=== PATIENT | male | born 1930 | race Caucasian/White ===

== ENCOUNTER 2018-11-27 20:26 | Emergency (ER) | payer MEDICARE, BC ==
[2018-11-27] MEDS ORDERED: Sodium Chloride 0.9% 10 ML Syringe FLUSH PRN (21:12)
[2018-11-27] MEDS ORDERED: Furosemide 40 MG/4 ML VIAL IVPUSH ONE (21:12)
--- NOTE | 2018-11-27 21:20 | EDM.PDOC ---
ED HPI GENERAL MEDICAL PROBLEM - General Chief Complaint: Respiratory Problem Stated Complaint: SOB Time Seen by Provider: 11/27/18 21:05 Source of Information: Reports: Patient, Old Records, RN History Limitations: Reports: Other (Limited old records) - History of Present Illness INITIAL COMMENTS - FREE TEXT/NARRATIVE: 88 yo male with a hx of CABG x 5 vessels and since then 5 more stents presents with some progressive SOB and orthopnea that began this afternoon. He now also has some mild chest pressure. He lives most of the year in [place], but [place] of [place]. He gets most of his care at [facility] in [facility]. He was prescribed spironolactone a week ago at [place], but has not yet started it. Onset: Today Onset Date: 11/27/18 Onset Time: 15:00 Duration: Hour(s):, Getting Worse Location: Reports: Chest Quality: Reports: Pressure Severity: Mild Improves with: Reports: Other (sitting up) Worsens with: Reports: Other (lying flat) Context: Reports: Other (see HPI) Associated Symptoms: Reports: Chest Pain (mild pressure), Shortness of Breath. Denies: Fever/Chills Treatments [employer]ATING: Reports: Other (see below) (none) - Related Data Allergies Allergy/AdvReac Type Severity Reaction Status Date / Time No Known Allergies Allergy Verified 11/27/18 20:47 Home Meds: Home Meds Carvedilol [Coreg] 12.5 mg PO BID 03/02/13 [History] Omeprazole 20 mg PO DAILY 03/02/13 [History] Terazosin [Hytrin] 15 mg PO ACBED 03/02/13 [History] Cholecalciferol (Vitamin D3) [Vitamin D3] 5,000 unit PO DAILY 11/27/18 [History] Clopidogrel [Plavix] 75 mg PO DAILY 11/27/18 [History] Dutasteride [Avodart] 0.5 mg PO DAILY 11/27/18 [History] Ferrous Gluconate 324 mg PO BID 11/27/18 [History] Furosemide [Lasix] 20 mg PO DAILY 11/27/18 [History] Gabapentin [Neurontin] 100 mg PO BEDTIME 11/27/18 [History] Isosorbide Dinitrate [Isordil] 5 mg PO BID 11/27/18 [History] Nitroglycerin [Nitrostat] 0.4 mg SL Q5M PRN 11/27/18 [History] Spironolactone [Aldactone] 12.5 mg PO DAILY 11/27/18 [History] Warfarin [Coumadin] 2.5 - 5 mg PO ASDIRECTED 11/27/18 [History] atorvaSTATin Calcium [Atorvastatin Calcium] 1 tab PO DAILY 11/27/18 [History] hydrALAZINE [Apresoline] 5 mg PO BID 11/27/18 [History] Past Medical History HEENT History: Reports: Cataract, Macular Degeneration Cardiovascular History: Reports: Afib, CAD, Heart Failure, High Cholesterol, Hypertension, PR, Pacemaker Respiratory History: Reports: Pulmonary Fibrosis, Sleep Apnea Gastrointestinal History: Reports: GERD Genitourinary History: Reports: BPH, Prostate Disorder Neurological History: Reports: CVA Endocrine/Metabolic History: Reports: Diabetes, Type II Hematologic History: Reports: Anticoagulation Therapy - Past Surgical History HEENT Surgical History: Reports: Cataract Surgery Cardiovascular Surgical History: Reports: Coronary Artery Bypass, Coronary Artery Stent, Pacer GI Surgical History: Reports: Colonoscopy, EGD Social & Family History - Tobacco Use Smoking Status *Q: Never Smoker - Caffeine Use Caffeine Use: Reports: None - Recreational Drug Use Recreational Drug Use: No - Living Situation & Occupation Living situation: Reports: , with Spouse Occupation: Retired ED ROS GENERAL - Review of Systems Review Of Systems: See Below Constitutional: Reports: No Symptoms HEENT: Reports: No Symptoms Respiratory: Reports: Shortness of Breath (mainly with exertion or with lying down). Denies: Wheezing, Pleuritic Chest Pain, Cough, Sputum, Hemoptysis Cardiovascular: Reports: Chest Pain (mild pressure), Dyspnea on Exertion, Orthopnea Endocrine: Reports: No Symptoms GI/Abdominal: Reports: No Symptoms : Reports: No Symptoms Musculoskeletal: Reports: No Symptoms Skin: Reports: No Symptoms Neurological: Reports: No Symptoms Psychiatric: Reports: No Symptoms ED EXAM, GENERAL - Physical Exam Exam: See Below Exam Limited By: No Limitations General Appearance: Alert, WD/WN, No Apparent Distress, Anxious (mildly) Eye Exam: Bilateral Eye: Normal Inspection Ears: Normal External Exam, Normal Canal, Hearing Grossly Normal. No: Hearing Loss Ear Exam: Bilateral Ear: Auricle Normal, Canal Normal Nose: Normal Inspection, No Blood Throat/Mouth: Normal Inspection, Normal Lips, Normal Oropharynx, Normal Voice, No Airway Compromise Head: Atraumatic, Normocephalic Neck: Normal Inspection Respiratory/Chest: No Respiratory Distress, No Accessory Muscle Use, Decreased Breath Sounds, Rales (at extreme bases). No: Rhonchi, Wheezing Cardiovascular: Regular Rate, Rhythm, No Edema GI/Abdominal: Soft, Non-Tender, No Distention Neurological: Alert, Oriented, CN II-XII Intact, Normal Cognition, No Motor/ Sensory Deficits Psychiatric: Normal Affect, Normal Mood Skin Exam: Warm, Dry, Intact, Normal Color, No Rash Course - Vital Signs Text/Narrative:: Feeling a lot better after furosemide. Able to lie flat and speak without SOB. Last Recorded V/S: Last Vital Signs Temp 36.4 C 11/27/18 20:58 Pulse 102 H 11/27/18 22:47 Resp 21 H 11/27/18 22:47 BP 144/86 H 11/27/18 22:47 Pulse Ox 93 L 11/27/18 22:47 - Orders/Labs/Meds Orders: Active Orders 24 hr Category Date Time Status Sodium Chloride 0.9% [Saline Flush] Med 11/27/18 21:12 Active 10 ml FLUSH ASDIRECTED PRN Saline Lock Insert [OM.PC] Routine Oth 11/27/18 21:12 Ordered Medication Orders Sodium Chloride (Saline Flush) 10 ml FLUSH ASDIRECTED PRN PRN Reason: Keep Vein Open Last Admin: 11/27/18 21:34 Dose: 10 ml Labs: Laboratory Tests 11/27/18 11/27/18 11/27/18 Range/Units 21:11 21:23 21:23 WBC 7.2 (4.5-11.0) K/uL RBC 4.19 L (4.30-5.90) M/uL Hgb 11.1 L (12.0-15.0) g/dL Hct 35.7 L (40.0-54.0) % MCV 85 (80-98) fL MCH 27 (27-31) pg MCHC 31 L (32-36) % Plt Count 143 L (150-400) K/uL PT (9.5-12.0) sec INR (0.80-1.20) D-Dimer, Quantitative 266 (0.0-400.0) ng/mL Sodium 138 L (140-148) mmol/L Potassium 4.1 (3.6-5.2) mmol/L Chloride 103 (100-108) mmol/L Carbon Dioxide 25 (21-32) mmol/L Anion Gap 14.1 H (5.0-14.0) mmol/L BUN 31 H (7-18) mg/dL Creatinine 1.3 (0.8-1.3) mg/dL Est Cr Clr Drug Dosing 40.79 mL/min Estimated GFR (MDRD) 52 L (>60) Glucose 210 H (74-106) mg/dL Calcium 9.2 (8.5-10.1) mg/dL Troponin I 0.032 (0.000-0.056) ng/mL C-Reactive Protein (0.0-0.3) mg/dL NT-Pro-B Natriuret Pep (5-450) pg/mL 11/27/18 11/27/18 11/27/18 Range/Units 21:23 21:23 22:06 WBC (4.5-11.0) K/uL RBC (4.30-5.90) M/uL Hgb (12.0-15.0) g/dL Hct (40.0-54.0) % MCV (80-98) fL MCH (27-31) pg MCHC (32-36) % Plt Count (150-400) K/uL PT 32.1 H (9.5-12.0) sec INR 3.11 H (0.80-1.20) D-Dimer, Quantitative (0.0-400.0) ng/mL Sodium (140-148) mmol/L Potassium (3.6-5.2) mmol/L Chloride (100-108) mmol/L Carbon Dioxide (21-32) mmol/L Anion Gap (5.0-14.0) mmol/L BUN (7-18) mg/dL Creatinine (0.8-1.3) mg/dL Est Cr Clr Drug Dosing mL/min Estimated GFR (MDRD) (>60) Glucose (74-106) mg/dL Calcium (8.5-10.1) mg/dL Troponin I (0.000-0.056) ng/mL C-Reactive Protein 2.09 H (0.0-0.3) mg/dL NT-Pro-B Natriuret Pep 6666 H (5-450) pg/mL Meds: Medications Generic Name Dose Route Start Last Admin Trade Name Best PRN Reason Stop Dose Admin Sodium Chloride 10 ml 11/27/18 21:12 11/27/18 21:34 Saline Flush FLUSH 10 ml ASDIRECTED PRN Administration Keep Vein Open Discontinued Medications Generic Name Dose Route Start Last Admin Trade Name Best PRN Reason Stop Dose Admin Furosemide 40 mg 11/27/18 21:12 11/27/18 21:33 Lasix IVPUSH 11/27/18 21:13 40 mg ONETIME ONE Administration Spironolactone 12.5 mg 11/27/18 22:21 11/27/18 22:50 Aldactone PO 11/27/18 22:22 12.5 mg ONETIME ONE Administration - Radiology Interpretation Free Text/Narrative:: CXR-cardiomegaly, atelectasis L base, ? small L pleural effusion Departure - Departure Time of Disposition: 22:53 Disposition: Home, Self-Care 01 Condition: Fair Clinical Impression: Fluid overload Qualifiers: Hypervolemia type: unspecified Qualified Code(s): E87.70 - Fluid overload, unspecified CHF (congestive heart failure) Qualifiers: Heart failure type: unspecified Heart failure chronicity: acute on chronic Qualified Code(s): I50.9 - Heart failure, unspecified - Discharge Information *PRESCRIPTION DRUG MONITORING PROGRAM REVIEWED*: No *COPY OF PRESCRIPTION DRUG MONITORING REPORT IN PATIENT MAGALI: No Instructions: Heart Failure Exacerbation Referrals: Naren Bowser MD [Primary Care Provider] - Forms: ED Department Discharge Additional Instructions: Start your spironolactone tomorrow morning and take every morning. Continue your other medicines as currently. If your weight is over 162 and you feel SOB, especially with lying flat, then try taking a double dose of your furosemide. If this doesn't work you need to be seen. - My Orders Last 24 Hours: My Active Orders 11/27/18 21:12 Sodium Chloride 0.9% [Saline Flush] 10 ml FLUSH ASDIRECTED PRN Saline Lock Insert [OM.PC] Routine - Assessment/Plan Last 24 Hours: My Active Orders 11/27/18 21:12 Sodium Chloride 0.9% [Saline Flush] 10 ml FLUSH ASDIRECTED PRN Saline Lock Insert [OM.PC] Routine
--- NOTE | 2018-11-27 21:40 | CRLCR ---
INDICATION: Shortness of breath, orthopnea TECHNIQUE: Chest 2 views. COMPARISON: None FINDINGS: Status post median sternotomy. Cardiomegaly. Left-sided pacemaker appears intact. Mild pulmonary cephalization. Ill-defined patchy opacities at the left lung base. Likely small left pleural effusion. No pneumothorax. No acute osseous abnormality. IMPRESSION: Ill-defined patchy opacities at the left lung base may reflect atelectasis or infection. Likely small left pleural effusion. Cardiomegaly. Dictated by Deirdre Huynh MD @ Nov 27 2018 9:38PM Signed by Dr. Deirdre Huynh @ Nov 27 2018 9:39PM
[2018-11-27] MEDS ORDERED: Spironolactone 25 MG Tab PO ONE (22:21)
[2018-11-27 22:48] VITALS: BP 144/86
== END 2018-11-27 23:21 | disposition home or self-care (01) ==
LOC: JP.ED 20:26
DX: I11.0 Hypertensive heart disease with heart failure (principal); I50.9 Heart failure, unspecified; E87.70 Fluid overload, unspecified; I25.10 Atherosclerotic heart disease of native coronary artery without angina pectoris; E78.00 Pure hypercholesterolemia, unspecified; I25.2 Old myocardial infarction; K21.9 Gastro-esophageal reflux disease without esophagitis; E11.9 Type 2 diabetes mellitus without complications; Z79.899 Other long term (current) drug therapy; Z86.73 Personal history of transient ischemic attack (TIA), and cerebral infarction without residual deficits; Z95.5 Presence of coronary angioplasty implant and graft; Z79.01 Long term (current) use of anticoagulants
CPT/HCPCS: 36415; 71046; 80048; 83880; 84484; 85027; 85379; 85610; 86140; 96374; 99284; A9270; J1940